=== PATIENT | female | born 1975 | race Two or more races ===

== ENCOUNTER 2020-12-08 08:08 | Outpatient (CLI) | payer OTHER | END 2020-12-08 09:47 | disposition home or self-care (01) | LOC: SONOGRAMA 08:08 | PROVIDERS: ATTEND Pathology Anatomic Pathology & Clinical Pathology | DX: E04.2 Nontoxic multinodular goiter (principal) ==

== ENCOUNTER 2023-03-28 09:27 | Outpatient (CLI) | payer OTHER | END 2023-03-28 09:29 | disposition home or self-care (01) | LOC: SONOGRAMA 09:27 | PROVIDERS: ATTEND Pathology Anatomic Pathology & Clinical Pathology | DX: D34 Benign neoplasm of thyroid gland (principal) ==